=== PATIENT | female | born 1955 | race American Indian/Alaskan Native ===

== ENCOUNTER 2025-01-03 15:56 | Emergency (ER) | payer MEDICARE, SELFPAY ==
[2025-01-03] VITALS (11 sets, daily range): BP systolic 137–178; BP diastolic 65–78; PULSE 73–90; RESP 12–56; TEMP 36.5; O2SAT 96–98; BMI 30.5
--- NOTE | 2025-01-03 16:20 | DI.RAD.S_ITS ---
PROCEDURE: XR CHEST 1V INDICATIONS: Chest Pain TECHNIQUE: One view of the chest was acquired. COMPARISON: [facility], CT, CT ANGIO HEAD AND NECK, 01/12/2024, 15:37. [facility], CR, XR CHEST 1 VIEW, 10/20/2023, 15:15. [facility], CR, XR CHEST 1 VIEW, 01/12/2024, 14:59. FINDINGS: Surgical changes and devices: Cervical spine fixation hardware is seen. Upper chest wall clips can be seen on both sides Lungs and pleura: Lungs are clear, yet hyperexpanded. No pleural effusions or pneumothorax. Mediastinum: Mediastinal contours appear normal. Heart size is normal. Atherosclerotic calcification of the aortic arch is noted. Bones and chest wall: No suspicious bony lesions. Age-appropriate bony degenerative changes are seen. Mild dextroconvex scoliotic curvature is seen. Overlying soft tissues appear unremarkable. IMPRESSION: Hyperexpanded lungs, without an acute cardiopulmonary process identified. Postoperative and degenerative changes are seen. Dictated by: Raúl Van M.D. on 01/03/2025 at 15:49 Approved by: Raúl Van M.D. on 01/03/2025 at 15:51
--- NOTE | 2025-01-03 16:20 | EKG_ITS ---
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
[2025-01-03 16:37] LABS: Add Manual Diff / Slide Review NO; Hematocrit 42.8 % (36-46); Hemoglobin 14.2 g/dL (12.0-16.0); Lymphocytes Absolute Auto 2300 /uL (1100-4500); Mean Corpuscular HGB Conc 33.3 % (30-36); Mean Corpuscular Hemoglobin 29.1 PG (26-34); Mean Corpuscular Volume 87.5 fL (80-100); Platelet Count 355 X10^3/uL (150-400)
[2025-01-03 16:40] LABS: INR 0.9 (0.9-1.3); Prothrombin Time 10.5 SECONDS (9.4-12.5)
[2025-01-03 16:42] LABS: PTT Partial Thromboplastin Tim 29 SECONDS (25.1-36.5)
[2025-01-03 16:44] LABS: Alanine Aminotransferase 19 IU/L (<35); Albumin 4.5 g/dL (3.5-5.0); Albumin Globulin Ratio 1.3 (1.0-2.8); Alkaline Phosphatase 90 U/L (38-126); Blood Urea Nitrogen 15 mg/dL (7-17); Calcium 9.1 mg/dL (8.4-10.2); Carbon Dioxide 23 mmol/L (22-32); Chloride 107 mmol/L (98-107); Creatine Kinase 45 U/L (30-135); Estimated Glomerular Filt Rate > 60 mL/min (>60); Globulin 3.5 g/dL (1.7-4.1); Glucose 101 mg/dL (70-99); HEMOLYSIS < 15 (0-50); Lipase 157 U/L (23-300); Magnesium 1.9 mg/dL (1.6-2.3); Potassium 4.1 mmol/L (3.4-5.1); Sodium 139 mmol/L (137-145); Total Protein 8.0 g/dL (6.3-8.2)
[2025-01-03] MEDS: ASPIRIN 81 MG CHEW TAB 324 MG PO (16:54)
[2025-01-03 16:57] LABS: NT-proBNP (BNP-Adult 18+) 34 pg/mL (<125); Troponin I < 0.012 ng/mL (0.01-0.034)
--- NOTE | 2025-01-03 16:58 | ED_ITS ---
HPI - Chest Pain <Emmett Tapia, DO - Last Filed: 01/03/25 19:16> General Chief Complaint: Chest Pain Stated Complaint: chest pain, sweat easily w/exertion PC ref Time Seen by Provider: 01/03/25 16:34 History of Present Illness HPI narrative: 69-year-old not currently on any medicines with a history of chronic pain started to have midsternal chest pain described as tightness for which patient took 1 aspirin today with no significant relief of her symptoms. She usually sweats along but she did say she was also diaphoretic yesterday but no nausea or radiating symptoms. Patient denies any lightheadedness, dizziness, back pain, abdominal pain, rash, fever, leg pain or leg swelling. Other than what is stated 14 point review of system is negative. Related Data Allergies Allergy/AdvReac Type Severity Reaction Status Date / Time No Known Drug Allergies Allergy Verified 01/03/25 16:32 Review of Systems <Emmett Tapia, DO - Last Filed: 01/03/25 19:16> Review of Systems ROS Unobtainable: All systems reviewed & are unremarkable except as noted in HPI and below Exam <Emmett Tapia, DO - Last Filed: 01/03/25 19:16> Narrative Exam Narrative: GENERAL: [69] year old patient appears stated age. Well-developed patient, in mild distress. HEAD: Atraumatic. Normocephalic. EYES: Pupils equal round and reactive. Extraocular motions intact. No scleral icterus. No injection or drainage. ENT: Nose without bleeding, purulent drainage. Throat without erythema, tonsillar hypertrophy or exudate. Airway patent. NECK: Trachea midline. Non tender CARDIOVASCULAR: Regular rate and rhythm without murmurs, gallops, or rubs. RESPIRATORY: Clear to auscultation. Breath sounds equal bilaterally. No wheezes, rales, or rhonchi. GASTROINTESTINAL: Abdomen soft, non-tender, nondistended. EXTREMITIES: No edema or joint tenderness. BACK: Nontender without deformity or crepitance. No flank tenderness. NEURO: AOx3. SKIN: No rash or erythema of visible areas Initial Vital Signs Initial Vital Signs: Vital Signs Temperature 97.7 F 01/03/25 16:17 Pulse Rate 90 01/03/25 16:17 Respiratory Rate 16 01/03/25 16:17 Blood Pressure 161/71 H 01/03/25 16:17 Pulse Oximetry 96 01/03/25 16:17 Oxygen Delivery Method Room Air 01/03/25 16:17 <Africa Sheldon DO - Last Filed: 01/04/25 05:54> Initial Vital Signs Initial Vital Signs: Vital Signs Temperature 97.7 F 01/03/25 16:17 Pulse Rate 90 01/03/25 16:17 Respiratory Rate 16 01/03/25 16:17 Blood Pressure 161/71 H 01/03/25 16:17 Pulse Oximetry 96 01/03/25 16:17 Oxygen Delivery Method Room Air 01/03/25 16:17 Scores <Emmett Tapia DO - Last Filed: 01/03/25 19:16> HEART Score Heart Score history: Slightly Suspicious Heart Score EKG: Normal Heart Score Age: > or = 65 years old Heart Score risk factors: No known risk factors Heart Score troponin: < or = to normal limit Heart Score Total: 2 <Africa Sheldon DO - Last Filed: 01/04/25 05:54> HEART Score Heart Score Total: 2 Course <Emmett Tapia DO - Last Filed: 01/03/25 19:16> Orders Ordered: Discontinued Medications Aspirin (Aspirin 81 Mg Chew Tab) 324 mg PO NOW ONE Stop: 01/03/25 16:21 Last Admin: 01/03/25 16:54 Dose: 324 mg Documented By: OLIVER Nitroglycerin (Nitroglycerin 0.4 Mg Sl Tab) 0.4 mg SL NOW ONE Stop: 01/03/25 16:59 Last Admin: 01/03/25 17:00 Dose: 0.4 mg Documented By: RB Vital Signs Vital signs: Vital Signs - 8 hr 01/03/25 16:17 01/03/25 16:45 01/03/25 16:45 Temperature 97.7 F Pulse Rate 90 73 Respiratory Rate 16 Blood Pressure 161/71 H 152/70 H Pulse Oximetry 96 98 Oxygen Delivery Method Room Air 01/03/25 17:00 01/03/25 17:00 01/03/25 17:00 Temperature Pulse Rate 78 78 Respiratory Rate 56 H Blood Pressure 152/70 H 153/68 H Pulse Oximetry 98 Oxygen Delivery Method 01/03/25 17:06 01/03/25 17:06 01/03/25 17:30 Temperature Pulse Rate 86 79 Respiratory Rate 28 H 16 Blood Pressure 163/74 H Pulse Oximetry 96 97 Oxygen Delivery Method 01/03/25 17:30 01/03/25 18:00 01/03/25 18:00 Temperature Pulse Rate 78 Respiratory Rate 24 Blood Pressure 149/66 H 178/78 H Pulse Oximetry 97 Oxygen Delivery Method 01/03/25 18:30 01/03/25 18:30 01/03/25 19:00 Temperature Pulse Rate 82 80 Respiratory Rate 43 H 12 Blood Pressure 177/74 H Pulse Oximetry 98 97 Oxygen Delivery Method 01/03/25 19:01 01/03/25 19:01 01/03/25 19:30 Temperature Pulse Rate 78 75 Respiratory Rate 53 H 12 Blood Pressure 149/67 H Pulse Oximetry 97 97 Oxygen Delivery Method 01/03/25 19:30 01/03/25 20:00 01/03/25 20:00 Temperature Pulse Rate 79 Respiratory Rate 19 Blood Pressure 145/66 H 137/65 Pulse Oximetry 97 Oxygen Delivery Method <Africa Sheldon, - Last Filed: 01/04/25 05:54> Orders Ordered: Discontinued Medications Aspirin (Aspirin 81 Mg Chew Tab) 324 mg PO NOW ONE Stop: 01/03/25 16:21 Last Admin: 01/03/25 16:54 Dose: 324 mg Documented By: RB Nitroglycerin (Nitroglycerin 0.4 Mg Sl Tab) 0.4 mg SL NOW ONE Stop: 01/03/25 16:59 Last Admin: 01/03/25 17:00 Dose: 0.4 mg Documented By: RB Vital Signs Vital signs: Vital Signs - 8 hr 01/03/25 16:17 01/03/25 16:45 01/03/25 16:45 Temperature 97.7 F Pulse Rate 90 73 Respiratory Rate 16 Blood Pressure 161/71 H 152/70 H Pulse Oximetry 96 98 Oxygen Delivery Method Room Air 01/03/25 17:00 01/03/25 17:00 01/03/25 17:00 Temperature Pulse Rate 78 78 Respiratory Rate 56 H Blood Pressure 152/70 H 153/68 H Pulse Oximetry 98 Oxygen Delivery Method 01/03/25 17:06 01/03/25 17:06 01/03/25 17:30 Temperature Pulse Rate 86 79 Respiratory Rate 28 H 16 Blood Pressure 163/74 H Pulse Oximetry 96 97 Oxygen Delivery Method 01/03/25 17:30 01/03/25 18:00 01/03/25 18:00 Temperature Pulse Rate 78 Respiratory Rate 24 Blood Pressure 149/66 H 178/78 H Pulse Oximetry 97 Oxygen Delivery Method 01/03/25 18:30 01/03/25 18:30 01/03/25 19:00 Temperature Pulse Rate 82 80 Respiratory Rate 43 H 12 Blood Pressure 177/74 H Pulse Oximetry 98 97 Oxygen Delivery Method 01/03/25 19:01 01/03/25 19:01 01/03/25 19:30 Temperature Pulse Rate 78 75 Respiratory Rate 53 H 12 Blood Pressure 149/67 H Pulse Oximetry 97 97 Oxygen Delivery Method 01/03/25 19:30 01/03/25 20:00 01/03/25 20:00 Temperature Pulse Rate 79 Respiratory Rate 19 Blood Pressure 145/66 H 137/65 Pulse Oximetry 97 Oxygen Delivery Method MDM - Chest Pain <Emmett C.H. Willie, DO - Last Filed: 01/03/25 19:16> Lab Data 01/03/25 16:25 01/03/25 16:25 Labs: Lab Results 01/03/25 01/03/25 01/03/25 Range/Units 16:25 18:30 18:47 WBC 7.9 (4.5-11.0) X10^3/uL RBC 4.89 (4.0-5.2) X10^6/uL Hgb 14.2 (12.0-16.0) g/dL Hct 42.8 (36-46) % MCV 87.5 (80-100) fL MCH 29.1 (26-34) PG MCHC 33.3 (30-36) % RDW 15.2 H (11.6-14.8) % Plt Count 355 (150-400) X10^3/uL Neut % (Auto) 60.0 (50-75) % Lymph % (Auto) 28.8 (25-40) % Eddy % (Auto) 8.2 (3-14) % Eos % (Auto) 2.4 (2-4) % Baso % (Auto) 0.6 (0-2) % Neut # (Auto) 4700 (5917-4267) /uL Lymph # (Auto) 2300 (1761-6021) /uL Eddy # (Auto) 600 (0-900) /uL Eos # (Auto) 200 (0-450) /uL Baso # (Auto) 0 (0-100) /uL PT 10.5 (9.4-12.5) SECONDS INR 0.9 (0.9-1.3) APTT 29 (25.1-36.5) SECONDS Sodium 139 (137-145) mmol/L Potassium 4.1 (3.4-5.1) mmol/L Chloride 107 (98-107) mmol/L Carbon Dioxide 23 (22-32) mmol/L BUN 15 (7-17) mg/dL Creatinine 0.79 (0.52-1.04) mg/dL Estimated GFR > 60 (>60) mL/min BUN/Creatinine Ratio 19.0 (6-22) Glucose 101 H (70-99) mg/dL Calcium 9.1 (8.4-10.2) mg/dL Magnesium 1.9 (1.6-2.3) mg/dL Total Bilirubin 0.2 (0.2-1.3) mg/dL AST 31 (14-36) IU/L ALT 19 (<35) IU/L Alkaline Phosphatase 90 (38-126) U/L Total Creatine Kinase 45 (30-135) U/L Troponin I < 0.012 < 0.012 (0.01-0.034) ng/mL NT-Pro-B Natriuret Pep 34 (<125) pg/mL Total Protein 8.0 (6.3-8.2) g/dL Albumin 4.5 (3.5-5.0) g/dL Globulin 3.5 (1.7-4.1) g/dL Albumin/Globulin Ratio 1.3 (1.0-2.8) Lipase 157 (23-300) U/L Urine RBC None seen (0-5/HPF) Urine WBC 5-10/hpf H (0-5/HPF) Ur Squamous Epith Cells 5-10 /hpf H (0-5/HPF) Amorphous Sediment 1+ Urine Bacteria Few (2-10) H (None) Ur Culture Indicated? Specimen cultured Vol Urine Centrifuged 10ml (spun) Urine Dip Bedside Urine Glucose Negative Bedside Urine Bilirubin - Negative Bedside Urine Ketone ++ 40 Urine Specific [place] 1.015 Bedside Urine Occult Blood - Negative Bedside Urine pH 6.0 Bedside Urine Protein - Negative Bedside Urine Urobilinogen - Negative Bedside Urine Nitrite - Negative Bedside Urine Leukocytes ++ 125 Esterase Imaging Data Chest x-ray: Radiologist's Impression: [address] [address] XRay Report Signed Patient: Ingris Puentes MR#: [id number] : 1955 Acct:[id number] Age/Sex: 69 / F Date of Service: 01/03/25 Loc: ED Accession Number: [id number] Procedure: XR chest 1V Ordering Provider: Emmett Tapia D.O. PROCEDURE: XR CHEST 1V INDICATIONS: Chest Pain TECHNIQUE: One view of the chest was acquired. COMPARISON: [facility], CT, CT ANGIO HEAD AND NECK, 01/12/2024, 15:37. [facility], CR, XR CHEST 1 VIEW, 10/20/2023, 15:15. [facility], CR, XR CHEST 1 VIEW, 01/12/2024, 14:59. FINDINGS: Surgical changes and devices: Cervical spine fixation hardware is seen. Upper chest wall clips can be seen on both sides Lungs and pleura: Lungs are clear, yet hyperexpanded. No pleural effusions or pneumothorax. Mediastinum: Mediastinal contours appear normal. Heart size is normal. Atherosclerotic calcification of the aortic arch is noted. Bones and chest wall: No suspicious bony lesions. Age-appropriate bony degenerative changes are seen. Mild dextroconvex scoliotic curvature is seen. Overlying soft tissues appear unremarkable. IMPRESSION: Hyperexpanded lungs, without an acute cardiopulmonary process identified. Postoperative and degenerative changes are seen. ECG Data Interpretation: NSR HR 85 NC 112 QRS [address]-t wave change No previous EKG to compare MDM Narrative Medical decision making narrative: All lab work, vital signs, nurse triage note, medication list, previous ER visits, and all imaging studies reviewed. WBC 7.9 hemoglobin 14.2 platelets 355 INR 0.9 139 potassium 4.1 chloride 107 CO2 23 BUN 15 creatinine 0.79 glucose 101 magnesium 1.9. First set troponin less than 0.012. Heart score of 2. Chest x-ray showed hyperexpanded lungs without acute cardiopulmonary process identified. Postoperative changes and degenerative. Changes are seen patient took aspirin prior to arrival and given 1 nitro here. Differential diagnosis STEMI NSTEMI unstable angina GERD chronic pain chest wall anxiety. Second troponin set pending. Patient signed out to Dr. Sheldon. <Africa Sheldon, - Last Filed: 01/04/25 05:54> Lab Data Labs: Lab Results 01/03/25 01/03/25 01/03/25 Range/Units 16:25 18:30 18:47 WBC 7.9 (4.5-11.0) X10^3/uL RBC 4.89 (4.0-5.2) X10^6/uL Hgb 14.2 (12.0-16.0) g/dL Hct 42.8 (36-46) % MCV 87.5 (80-100) fL MCH 29.1 (26-34) PG MCHC 33.3 (30-36) % RDW 15.2 H (11.6-14.8) % Plt Count 355 (150-400) X10^3/uL Neut % (Auto) 60.0 (50-75) % Lymph % (Auto) 28.8 (25-40) % Eddy % (Auto) 8.2 (3-14) % Eos % (Auto) 2.4 (2-4) % Baso % (Auto) 0.6 (0-2) % Neut # (Auto) 4700 (2396-5657) /uL Lymph # (Auto) 2300 (1410-3162) /uL Eddy # (Auto) 600 (0-900) /uL Eos # (Auto) 200 (0-450) /uL Baso # (Auto) 0 (0-100) /uL PT 10.5 (9.4-12.5) SECONDS INR 0.9 (0.9-1.3) APTT 29 (25.1-36.5) SECONDS Sodium 139 (137-145) mmol/L Potassium 4.1 (3.4-5.1) mmol/L Chloride 107 (98-107) mmol/L Carbon Dioxide 23 (22-32) mmol/L BUN 15 (7-17) mg/dL Creatinine 0.79 (0.52-1.04) mg/dL Estimated GFR > 60 (>60) mL/min BUN/Creatinine Ratio 19.0 (6-22) Glucose 101 H (70-99) mg/dL Calcium 9.1 (8.4-10.2) mg/dL Magnesium 1.9 (1.6-2.3) mg/dL Total Bilirubin 0.2 (0.2-1.3) mg/dL AST 31 (14-36) IU/L ALT 19 (<35) IU/L Alkaline Phosphatase 90 (38-126) U/L Total Creatine Kinase 45 (30-135) U/L Troponin I < 0.012 < 0.012 (0.01-0.034) ng/mL NT-Pro-B Natriuret Pep 34 (<125) pg/mL Total Protein 8.0 (6.3-8.2) g/dL Albumin 4.5 (3.5-5.0) g/dL Globulin 3.5 (1.7-4.1) g/dL Albumin/Globulin Ratio 1.3 (1.0-2.8) Lipase 157 (23-300) U/L Urine RBC None seen (0-5/HPF) Urine WBC 5-10/hpf H (0-5/HPF) Ur Squamous Epith Cells 5-10 /hpf H (0-5/HPF) Amorphous Sediment 1+ Urine Bacteria Few (2-10) H (None) Ur Culture Indicated? Specimen cultured Vol Urine Centrifuged 10ml (spun) Urine Dip Bedside Urine Glucose Negative Bedside Urine Bilirubin - Negative Bedside Urine Ketone ++ 40 Urine Specific [place] 1.015 Bedside Urine Occult Blood - Negative Bedside Urine pH 6.0 Bedside Urine Protein - Negative Bedside Urine Urobilinogen - Negative Bedside Urine Nitrite - Negative Bedside Urine Leukocytes ++ 125 Esterase MDM Narrative Medical decision making narrative: All lab work, vital signs, nurse triage note, medication list, previous ER visits, and all imaging studies reviewed. WBC 7.9 hemoglobin 14.2 platelets 355 INR 0.9 139 potassium 4.1 chloride 107 CO2 23 BUN 15 creatinine 0.79 glucose 101 magnesium 1.9. First set troponin less than 0.012. Heart score of 2. Chest x-ray showed hyperexpanded lungs without acute cardiopulmonary process identified. Postoperative changes and degenerative. Changes are seen patient took aspirin prior to arrival and given 1 nitro here. Differential diagnosis STEMI NSTEMI unstable angina GERD chronic pain chest wall anxiety. Second troponin set pending. Patient signed out to Dr. Sheldon. 01/03/25 Dr. Sheldon: Patient signed out to myself while awaiting repeat troponin. Labs and imaging were reviewed as well as EKG. Patient received aspirin and nitro. Patient stated evaluated by myself. Patient desires discharge home. Patient is asymptomatic, cardiac workup so far is negative, plan for follow up with primary care. Discharge Plan Departure Patient Disposition: Home Clinical Impression: Chest pain Instructions: DI for Chest Pain Activity Restrictions/Additional Instructions: Follow up with your physician for recheck. Please return if you have new or worsening symptoms, recurrent chest pain, shortness of breath, lightheadedness or passing out, persistent sweatiness, nausea or vomiting or other new or concerning changes. Referrals: Rosa Nicholson MD [Primary Care Provider, Family Practice] Stand Alone Forms: Patient Portal/API
[2025-01-03] MEDS: NITROGLYCERIN 0.4 MG SL TAB SL (17:00)
[2025-01-03 19:09] LABS: Troponin I < 0.012 ng/mL (0.01-0.034)
[2025-01-03 19:13] LABS: Culture Indicated Urine Specimen Cultured
== END 2025-01-03 20:19 | disposition home or self-care (01) ==
PROVIDERS: Family Medicine; Emergency Provider Emergency Medicine; PCP Family Medicine
DX: R07.9 Chest pain, unspecified (principal)
CPT/HCPCS: 71045; 80053; 81003; 81015; 82550; 83690; 83735; 83880; 84484; 85025; 85610; 85730; 87086; 93005; 93010; 99283; 99284